=== PATIENT | male | born 1990 | race Two or more races ===

== ENCOUNTER 2018-07-14 12:43 | Emergency (ER) | payer OTHER ==
[~2018-07-14] VITALS: Ht 175.3 cm; Wt 65.8 kg
== END 2018-07-14 20:50 | disposition home or self-care (01) ==
LOC: ER 12:43
DX: L02.416 Cutaneous abscess of left lower limb (principal); M25.562 Pain in left knee

== ENCOUNTER 2018-08-23 20:19 | Emergency (ER) | payer OTHER ==
[~2018-08-23] VITALS: Ht 177.8 cm; Wt 65.8 kg
== END 2018-08-23 22:14 | disposition home or self-care (01) ==
LOC: ER 20:19
DX: L03.113 Cellulitis of right upper limb (principal)

== ENCOUNTER → 2019-04-18 | Emergency (ER) | payer OTHER ==
[~2019-04-18] VITALS: Ht 175.3 cm; Wt 64.4 kg
== END | disposition home or self-care (01) ==
LOC: ER 14:54
DX: J06.9 Acute upper respiratory infection, unspecified (principal); B96.0 Mycoplasma pneumoniae [M. pneumoniae] as the cause of diseases classified elsewhere

== ENCOUNTER 2019-07-02 02:15 | Emergency (ER) | payer OTHER ==
[~2019-07-02] VITALS: Ht 177.8 cm; Wt 65.8 kg
[2019-07-02] MEDS ORDERED: NORFLEX100MG PO (03:25)
[2019-07-02] MEDS ORDERED: KETO10TA2 PO (03:25)
== END 2019-07-02 03:30 | disposition home or self-care (01) ==
LOC: ER 02:15
DX: S30.0XXA Contusion of lower back and pelvis, initial encounter (principal); W18.39XA Other fall on same level, initial encounter; Y93.89 Activity, other specified; Y92.098 Other place in other non-institutional residence as the place of occurrence of the external cause; Y99.8 Other external cause status

== ENCOUNTER 2021-03-22 02:15 | Emergency (ER) | payer OTHER ==
[~2021-03-22] VITALS: Ht 177.8 cm; Wt 65.8 kg
[~2021-03-22 02:15] MED LIST: KETO10TA2 PO; NORFLEX100MG PO
[2021-03-22] MEDS ORDERED: DUI500 PO (02:45)
== END 2021-03-22 02:58 | disposition home or self-care (01) ==
LOC: ER 02:15
DX: J03.90 Acute tonsillitis, unspecified (principal)

== ENCOUNTER 2021-06-14 18:13 | Emergency (ER) | payer OTHER ==
[~2021-06-14] VITALS: Ht 177.8 cm; Wt 68.0 kg
[~2021-06-14 18:13] MED LIST changes: +DUI500 PO
== END 2021-06-15 | disposition home or self-care (01) ==
LOC: ER 18:13
DX: J10.1 Influenza due to other identified influenza virus with other respiratory manifestations (principal); Z20.822 Contact with and (suspected) exposure to COVID-19

== ENCOUNTER 2021-10-22 21:08 | Emergency (ER) | payer OTHER ==
[~2021-10-22] VITALS: Ht 177.8 cm; Wt 68.0 kg
== END 2021-10-22 22:43 | disposition home or self-care (01) ==
LOC: ER 21:08
DX: U07.1 COVID-19 (principal)

== ENCOUNTER 2021-11-10 01:10 | Emergency (ER) | payer OTHER ==
[~2021-11-10] VITALS: Ht 177.8 cm; Wt 68.0 kg
[2021-11-10] MEDS ORDERED: MUPIROCIN22 GM TOP (06:43)
== END 2021-11-10 07:56 | disposition home or self-care (01) ==
LOC: ER 01:10
DX: B04 Monkeypox (principal); L98.498 Non-pressure chronic ulcer of skin of other sites with other specified severity

== ENCOUNTER → 2022-05-24 | Emergency (ER) | payer OTHER ==
[~2022-05-24] VITALS: Ht 177.8 cm; Wt 70.3 kg
[~2022-05-24] MED LIST changes: +ACETAMINOPHEN650 M2; +MUPIROCIN22 GM TOP
== END | disposition left against medical advice (07) ==
LOC: ER 23:31
DX: Z53.21 Procedure and treatment not carried out due to patient leaving prior to being seen by health care provider (principal)

== ENCOUNTER 2025-02-08 21:53 | Emergency (ER) | payer OTHER ==
[~2025-02-08] VITALS: Ht 177.8 cm; Wt 70.3 kg
[2025-02-09] MEDS ORDERED: KETOROLAC TROMETHAMINE 30 MG VIAL IM STA (00:58)
[2025-02-09] MEDS ORDERED: DEXAMETHASONE SODIUM PHOSPHATE 4 MG/ML VIAL IM STA (00:59)
[2025-02-09] MEDS ORDERED: CEFTRIAXONE SODIUM 1,000 MG VIAL IM STA (00:59)
[2025-02-09] MEDS ORDERED: GUAIFENESIN 200 MG/10 ML BLIST.PACK PO STA (01:02)
[2025-02-09] MEDS ORDERED: KETOROLAC TROMETHAMINE 30 MG VIAL ONE (01:30)
[2025-02-09] MEDS ORDERED: DEXAMETHASONE SODIUM PHOSPHATE 4 MG/ML VIAL ONE (01:31)
[2025-02-09] MEDS ORDERED: CEFTRIAXONE SODIUM 1,000 MG VIAL ONE (01:31)
[2025-02-09] MEDS ORDERED: GUAIFENESIN 200 MG/10 ML BLIST.PACK PO ONE ×2 (01:32→01:36)
[2025-02-09] MEDS ORDERED: LIDOCAINE HCL 1% 10ML VIAL ONE (01:53)
== END 2025-02-09 03:27 | disposition home or self-care (01) ==
LOC: ER 21:54
DX: J06.9 Acute upper respiratory infection, unspecified (principal); Z91.013 Allergy to seafood